=== PATIENT | male | born 1995 | race Caucasian/White ===

== ENCOUNTER 2019-05-23 15:22 | Emergency (ER) | payer OTHER | END 2019-05-23 17:53 | disposition home or self-care (01) | DX: S61.210A Laceration without foreign body of right index finger without damage to nail, initial encounter (principal); S29.012A Strain of muscle and tendon of back wall of thorax, initial encounter; R55 Syncope and collapse; Z90.89 Acquired absence of other organs; Z98.890 Other specified postprocedural states; Z88.1 Allergy status to other antibiotic agents; W31.89XA Contact with other specified machinery, initial encounter; Y93.89 Activity, other specified; Y92.89 Other specified places as the place of occurrence of the external cause; Y99.0 Civilian activity done for income or pay ==